=== PATIENT | female | born 1985 | race American Indian/Alaskan Native ===

== ENCOUNTER 2016-07-01 09:20 | Inpatient (IN) | payer MEDICAID ==
--- NOTE | 2016-06-26 12:19 | History and Physical Report ---
History of Present Illness Date of examination: 06/26/16 Date of admission: 07/01/2016 Chief complaint: 31 yo A1 at 39w+4 d admitted for repeat c/s. 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 This infant also has IUGR but has subsequently shown good interval growth. MBT O pos, Rub Imm, GBS positive. Seen and examined and no changes today. History of present illness: Remainder of H&P from [facility] and confirmed today. OB Intake Ethnicity: Mu-Ism: Yazidism Occupation: [employer] Documentation Writer: Dr. Arely Baker Father of baby: Fahad BARNETT contact #: [phone] Vital Signs Height: 68 in. Weight (lb): 264 BMI: 40.2 BP: 130/ 70 mm Hg Ur. Protein: negative Ur. Glucose: negative Chief Complaint/Current Status: c/o missed period, fatigue.....ajackson Menstrual History Regularity: regular LMP: 09/28/2015 LMP reliability: definite LMP character: normal test type: urine test Date: 01/24/2016 BC at conception: none Planned ? yes EDC Calculations LMP: 07/04/2016 EDC Confirmation: 07/04/2016 Gestational Age: 16 6/7 weeks Past History : 3 Term Births: 1 Living Children: 1 Para: 1 Prev : 1 Aborta: 1 Elect. Ab: 1 Spont. 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 Infection History Hx of STD: chlamydia HIV Risk Eval: no Hepatitis B Risk Eval: low risk Personal hx. of genital herpes: no Partner hx. of genital herpes: no Rash, Viral, or Febrile illness since last LMP? no Varicella/Chicken Pox Status: Previous Disease Genetic History Congenital Heart Defect: Mom: no Dad: no Gogo Disease: Mom: no Dad: no Thalassemia Mom: no Dad: no Neural Tube Defect Mom: no Dad: no Down's Syndrome Mom: no Dad: no Dhaval-Sachs Mom: no Dad: no Sickle Cell Disease/Trait Mom: no Dad: no Hemophilia Mom: no Dad: no Muscular Dystrophy Mom: no Dad: no Cystic Fibrosis Mom: no Dad: no [place] Chorea Mom: no Dad: no Mental Retardation Mom: no Dad: no Fragile X Mom: no Dad: no Other Genetic/Chromosomal Disorder Mom: no Dad: no Child w/other defect Mom: yes Dad: no Comments: daughter born with Jones's syndrome Enviromental Exposures Xray Exposure: no Medication, drug, or alcohol use since LMP: no Chemical/Other Exposure: no Exposure to Cat Liter: no Hx of Parvovirus (Fifth Disease): no Occupational Exposure to Children: none Active Medications (reviewed today): None Current Allergies (reviewed today): * ROBITUSSIN (Critical) * ZEST SOAP (Critical) Laboratory Results Routine Urinalysis Leukocytes: negative Nitrite: negative Urobilinogen: negative Protein: negative Blood: trace Ketone: negative Bilirubin: negative Glucose: negative Urine HCG: positive Review of Systems General Denies fever, chills, sweats, anorexia, fatigue, weakness, malaise, weight loss and sleep disorder. Denies nausea, vomiting, headache, swelling of legs, abdominal pain, vaginal discharge, vaginal bleeding and contractions. sore nipples Denies vaginal discharge, incontinence, dysuria, hematuria, urinary frequency, amenorrhea, menorrhagia, abnormal vaginal bleeding, pelvic pain, genital sores, decreased libido, painful periods, painful sex, urinary urgency, hot flashes, vaginal dryness, vaginal itching and vaginal odor. CV Denies chest pains, palpitations, syncope, dyspnea on exertion, orthopnea, PND and peripheral edema. Resp Denies cough, dyspnea at rest, excessive sputum, hemoptysis, wheezing and pleurisy. GI Denies nausea, vomiting, diarrhea, constipation, change in bowel habits, abdominal pain, melena, hematochezia, jaundice, gas/bloating, indigestion/ heartburn, dysphagia and odynophagia. Endo Denies cold intolerance, heat intolerance, polydipsia, polyphagia, polyuria and unusual weight change. Breast Denies left breast lump, right breast lump, nipple discharge, bloody discharge from nipple, breast pain, abnormal mammogram and breast enlargement. MS Denies back pain, joint pain, joint swelling, muscle cramps, muscle weakness, stiffness, arthritis, sciatica, restless legs, leg pain at night and leg pain with exertion. Derm Denies rash, itching, dryness and suspicious lesions. Neuro Denies paralysis, paresthesias, headache, seizures, tremors, vertigo, transient blindness, frequent falls, frequent headaches and difficulty walking. Psych Denies depression, anxiety, irritability and mood swings. Eyes Denies blurring, diplopia, irritation, discharge, vision loss, eye pain and photophobia. ENT Denies earache, ear discharge, tinnitus, decreased hearing, nasal congestion, nosebleeds, sore throat and hoarseness. Allergy Denies urticaria, allergic rash, hay fever and recurrent infections. Heme Denies abnormal bruising, bleeding and enlarged lymph nodes. 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 Arely Baker Medications and Allergies Active Meds: Active Medications Citric Acid/Sodium Citrate (Bicitra) 30 ml PO ONCE ONE Stop: 06/26/16 12:14 Famotidine (Pepcid) 20 mg IV ONCE ONE Stop: 06/26/16 12:14 Cefazolin Sodium (Ancef/Sterile Water 2 Gm/20 Ml) 2 gm in 20 mls @ 80 mls/hr IV PREOP NR PRN Reason: Protocol Lactated Ringer's (Lactated Ringers) 1,000 mls @ 2,250 mls/hr IV PREOP GRICELDA Stop: 06/27/16 13:27 Oxytocin/Sodium Chloride (Pitocin/Ns 20 Unit/1000ml Drip) 20 units in 1,000 mls @ 0 mls/hr IV TITR GRICELDA PRN Reason: As Directed Metoclopramide HCl (Reglan) 10 mg IV ONCE ONE Stop: 06/26/16 12:14 Results All other labs normal. Assessment and Plan - Patient Problems (1) Previous delivery affecting Current Visit: Yes Status: Acute (2) Term Current Visit: Yes Status: Acute
[~2016-07-01 09:20] MED LIST: ANCEF/STERILE WATER 2 GM/20 ML 2 GM/20 ML SYRINGE IV NR; BICITRA PO ONE; LACTATED RINGERS 1,000 ML IV SCH; PEPCID IV ONE; REGLAN IV ONE
--- NOTE | 2016-07-01 10:17 | Anesthesia Consultation ---
Anesthesia Consult and Med Hx Date of service: 07/01/16 - Airway Anesthetic Teeth Evaluation: Good ROM Head & Neck: Adequate Mental/Hyoid Distance: Adequate Mallampati Class: Class II Intubation Access Assessment: Probably Good - Pre-Operative Health Status ASA Pre-Surgery Classification: ASA2 Proposed Anesthetic Plan: Spinal - Additional Comments Anesthesia Medical History Comments: previous
[2016-07-01] MEDS ORDERED: LACTATED RINGERS 2,000 ML ONE (11:02)
[2016-07-01 11:16] LABS: Hemoglobin 10.5 gm/dl (10.1-14.3); Mean Corpuscular HGB Conc 33 % (30-34); Mean Corpuscular Hemoglobin 28 pg (28-32); Mean Corpuscular Volume 87 fl (79-97); Platelet Count 216 K/mm3 (140-440); Red Blood Count 3.69 M/mm3 (3.65-5.03); Red Cell Distribution Width 15.7 % (13.2-15.2); White Blood Count 9.6 K/mm3 (4.5-11.0)
[2016-07-01] MEDS ORDERED: BENADRYL IV PRN (11:24)
[2016-07-01] MEDS ORDERED: DILAUDID IV PRN (11:24)
[2016-07-01] MEDS ORDERED: NARCAN 0.4 MG/1 ML IV PRN ×2 (11:24→13:24)
[2016-07-01] MEDS ORDERED: ZOFRAN IV PRN ×2 (11:24→13:24)
--- NOTE | 2016-07-01 11:24 | Anesthesia Day of Surgery ---
Anesthesia Day of Surgery - Day of Surgery Patient Examined: Yes Patient H&P Reviewed: Yes Patient is NPO: Yes
[2016-07-01] MEDS ORDERED: TORADOL IV PRN ×2 (11:25→13:24)
[2016-07-01] MEDS ORDERED: BICITRA ONE (11:34)
[2016-07-01] MEDS ORDERED: PEPCID IV ONE (11:34)
[2016-07-01] MEDS ORDERED: PITOCin/NS 20 UNIT/1000ML DRIP 20,000 MILLIUNITS/1,000 ML BAG IV ONE (11:34)
[2016-07-01] MEDS ORDERED: REGLAN ONE (11:34)
[2016-07-01] MEDS ORDERED: ANCEF/STERILE WATER 2 GM/20 ML 2 GM/20 ML SYRINGE IV ONE (11:34)
[2016-07-01] MEDS ORDERED: MORPHINE ONE (11:56)
[2016-07-01] MEDS ORDERED: SODIUM CHLORIDE FLUSH SYRINGE 10 ML IV NR ×2 (12:00→14:00)
[2016-07-01] MEDS ORDERED: NACL 0.9% IR ONE (12:20)
[2016-07-01] MEDS ORDERED: WATER FOR IRRIG STERILE IR ONE (12:20)
[2016-07-01] MEDS ORDERED: ANCEF/STERILE WATER 2 GM/20 ML IV ONE (12:36)
[2016-07-01] MEDS: PITOCin/NS 20 UNIT/1000ML DRIP 20 UNITS/1,000 ML BAG IV SCH ×2 (12:42→14:05)
[2016-07-01] MEDS ORDERED: VERSED ONE (12:52)
[2016-07-01] MEDS ORDERED: NEO SYNEPHRINE/NS Syringe(OR USE) IV ONE ×2 (13:05)
--- NOTE | 2016-07-01 13:23 | Operative Report ---
Operative Report Operative Report: Date of Procedure: 07/01/2016 Procedure name(s): Repeat transverse low segment section Pre-operative diagnosis: Previous section, intrauterine at term Post-operative diagnosis: Same Surgeon: Rhonda Rosario M.D. Yard Goods Salesperson: ROLLY Anesthesia: Epidural EBL: 800 : 3551 gm (7 lbs. 13 oz.) male with Apgars of 8 and 9 Time of : 1240 Findings Normal tubes, uterus and ovaries except for small 2-3 cm anterior subserosal fibroid Procedure The patient was taken to the operating room and after adequate anesthesia was obtained she was placed in the supine position in left lateral tilt. Sequential compression devices were in place on both lower extremities and a Rojas catheter was placed in a sterile fashion. The abdomen was then prepped and draped in the usual fashion. Surgical time-out was done with the entire OR team attentive. A Pfannenstiel incision was made with a scalpel through the old incision and sharp dissection was carried down through all layers of the abdomen in the usual fashion. The abdomen was entered bluntly and the lower uterine segment was identified. The presenting part was palpated and the scalpel was used to incise the uterus in a transverse fashion and this incision was extended bluntly with finger traction and the membranes were ruptured. There was some meconium in the fluid. My hand was inserted into the uterus and then the vertex was grasped, rotated to an OA presentation and delivered with a combination of traction and fundal pressure. A nuchal cord was reduced. The remainder of the infant was delivered. The cord was clamped and cut and a viable was suctioned and handed off to the attending NICU staff and was a 8 lbs. 13 oz Male with Apgars of 8 and 9. The placenta was removed manually, the interior of the uterus was cleansed with moist lap packs and the uterus was exteriorized. The uterine incision was closed with a double imbricating layer of 0 Vicryl suture in a running fashion. Hemostasis was adequate and the uterus was returned to the abdomen. Uterus was well contracted. The abdomen was then closed in layers: the rectus muscles were closed with several [id number] sutures of 0 Vicryl, the fascia was closed with running sutures of 0 Vicryl starting at both side corners in turn and tied together in the midline. The subcutaneous tissue was irrigated and then closed with several interrupted sutures of 2-0 plain and the skin was closed with a running subcuticular suture of 4-0 Vicryl. Sponge and Lap count correct X 3, estimated blood loss was 800 mL and the Rojas was draining clear urine. The patient tolerated the procedure well and was discharged to PACU in good condition.
[2016-07-01] MEDS ORDERED: MORPHINE IV PRN ×2 (13:24)
[2016-07-01] MEDS ORDERED: TUCKS PAD TP PRN (13:24)
[2016-07-01] MEDS ORDERED: PHENERGAN PR PRN (13:24)
[2016-07-01] MEDS ORDERED: LANSINOH TP PRN (13:24)
[2016-07-01] MEDS ORDERED: PITOCin/NS 20 UNIT/1000ML DRIP 20 UNITS/1,000 ML BAG IV SCH (14:00)
[2016-07-01] MEDS ORDERED: ANCEF/NS 1 GM/50 ML 1 GM/50 ML BAG IV SCH (14:00)
--- NOTE | 2016-07-01 14:12 | Post Anesthesia Evaluation ---
- Post Anesthesia Evaluation Patient Participated: Yes Airway Patent: Yes Stable Respiratory Function: Yes Temp > 96.8F: Yes Pain Manageable: Yes Adequeate Hydration: Yes Anesthesia Complications: No Block Receding Appropriately: Not Applicable
[2016-07-01] MEDS ORDERED: D5LR 1,000 ML IV SCH (18:45)
[2016-07-01] MEDS: D5LR 1,000 ML IV ONE (19:00)
[2016-07-02 03:57] LABS: Hematocrit 27.9 % (30.3-42.9); Hemoglobin 9.2 gm/dl (10.1-14.3)
[2016-07-02] MEDS ORDERED: ANCEF/NS 1 GM/50 ML 1 GM/50 ML BAG IV SCH (04:00)
[2016-07-02] MEDS ORDERED: BOOSTRIX IM ONE ×2 (06:00→13:25)
--- NOTE | 2016-07-02 07:38 | Progress Note ---
Assessment and Plan Patient doing well, complaints of itching probably from anesthesia. Lochia scant, dressing to be removed by RN during AM care. H&H stable 9.2/29.9, no s/s anemia (anemia from blood loss). VSSAF. Continue postop pathway and anticipate d /c home tomorrow if stable. - Patient Problems (1) delivery delivered Current Visit: Yes Status: Acute (2) Anemia due to blood loss, acute Current Visit: Yes Status: Acute Subjective - Subjective Date of service: 07/02/16 Principal diagnosis: postop day #1 s/p repeat c/s Patient reports: appetite normal, voiding normally, pain well controlled, flatus , ambulating normally, no dizzy ambulation, no nauseated : doing well, nursing well Objective - Vital Signs Latest vital signs: Vital Signs Temp Pulse Pulse Resp BP BP Pulse Ox 07/02/16 04:52 98.7 F 96 H 18 128/56 07/02/16 00:15 98.3 F 86 20 134/65 07/01/16 20:30 98.5 F 91 H 20 109/59 07/01/16 15:55 97.5 F L 92 H 20 121/62 07/01/16 14:35 97.7 F 89 21 116/63 99 07/01/16 14:30 86 27 H 114/70 99 07/01/16 14:25 8 L 127/84 100 07/01/16 14:21 118/62 100 07/01/16 14:15 79 17 105/42 78 L 07/01/16 14:11 84 17 105/42 100 07/01/16 14:05 74 24 112/65 100 07/01/16 14:00 72 29 H 113/53 99 07/01/16 13:55 79 14 118/59 100 07/01/16 13:50 84 14 116/68 100 07/01/16 13:45 88 17 104/61 100 07/01/16 13:40 84 13 104/66 96 07/01/16 13:35 97.6 F 86 16 110/61 99 07/01/16 13:33 98 07/01/16 10:42 72 20 122/71 Intake and Output 07/01/16 07/02/16 07/02/16 22:59 06:59 14:59 Intake Total 615 360 Output Total 200 1650 Balance 415 -1290 Intake: IV 375 PITOCin/NS 20 UNIT/1000ML 375 DRIP 20 units In 1,000 ml @ 250 mls/hr IV TITR GRICELDA Rx#:[id number] Oral 240 Intake, Free Water 360 Output: Urine 200 1650 Indwelling Catheter 200 400 Void 1250 Other: Total, Intake Amount 240 Total, Output Amount 200 750 # Voids Void 1 - Exam Breasts: Present: normal, Cardiovascular: Present: Regular rate Lungs: Present: Clear to auscultation, Normal air movement Abdomen: Present: normal appearance, soft, normal bowel sounds Vulva: both: normal Uterus: Present: normal, firm Extremities: Present: normal Incision: Present: normal, dry, dressed - Labs Labs: Abnormal lab results 07/01/16 07/02/16 Range/Units 10:55 03:24 Hgb 9.2 L (10.1-14.3) gm/dl Hct 27.9 L (30.3-42.9) % RDW 15.7 H (13.2-15.2) %
[2016-07-02] MEDS ORDERED: BENADRYL PO PRN (08:00)
--- NOTE | 2016-07-02 10:25 | Progress Note ---
Subjective Date of service: 07/02/16 Principal diagnosis: postop day #1 s/p repeat c/s Interval history: 1st POD after Patient is in the bed, comfortable. Pain is well controlled with pain meds. Ambulated well. No residual neurological deficit. No anesthesia complications Objective - Constitutional Vitals: Vital Signs - 12hr 07/02/16 07/02/16 07/02/16 00:15 04:52 07:26 Temperature 98.3 F 98.7 F 98.2 F Pulse Rate [ 84 Left Radial] Pulse Rate [ 86 96 H Right From Monitor] Respiratory 20 18 20 Rate Blood Pressure 134/65 128/56 118/74 [Left Arm] - Labs CBC & Chem 7: 07/02/16 03:24 Labs: Abnormal lab results 07/01/16 07/02/16 Range/Units 10:55 03:24 Hgb 9.2 L (10.1-14.3) gm/dl Hct 27.9 L (30.3-42.9) % RDW 15.7 H (13.2-15.2) %
[2016-07-02] MEDS: MOTRIN PO PRN (11:54)
[2016-07-02] MEDS: PERCOCET 5/325 PO PRN ×2 (11:54→20:29)
[2016-07-03] MEDS: MOTRIN PO PRN ×4 (01:16→19:17)
--- NOTE | 2016-07-03 06:30 | Discharge Summary ---
Providers - Providers Date of Admission: 07/01/16 09:20 Date of discharge: 07/03/16 (pt agrees with d/c ) Attending physician: STONE JOSEPH 07/01/16 13:24 Consult to Marriage And Family Counselor [CONS] Routine Reason For Exam: Primary care physician: STONE JOSEPH Hospitalization Reason for admission: section, IUP at term Delivery: Procedure: repeat low transverse Episiotomy: none Laceration: none Incision: normal, dry, intact Other procedures: none complications: none Discharge diagnosis: IUP at term delivered [place] baby: male (decline circumcision) Hospital course: uncomplicated section Pt w/o complaint VSS FF below umb Lochia small Dressing removed Incision D&I H& H 01/01 drop r/t blood loss from surgery. Pt is asymptomatic. Doing well s/p repeat c/s P: d/c today with instructions RTO 1 week postop care Condition at discharge: Good Disposition: DISCHARGED TO HOME OR SELFCARE - Discharge Diagnoses (1) delivery delivered Status: Acute Comment: RTO 1 week postop care Plan - Discharge Medications Prescriptions: Docusate Sodium [Colace] 100 mg PO BID PRN #60 capsule PRN Reason: Constipation Ferrous Sulfate [Feosol 325 MG tab] 325 mg PO BID #60 tablet Ibuprofen [Motrin 800 MG tab] 800 mg PO Q8HR PRN #30 tablet PRN Reason: Pain Lidocain2.5%/Prilocai2.5% [Emla] 5 gm TP 1XW #1 tube oxyCODONE /ACETAMINOPHEN [Percocet 5/325 mg] 1 - 2 tab PO Q4HR PRN #30 tab PRN Reason: Pain - Provider Discharge Summary Activity: routine, no sex for 6 weeks, no heavy lifting 4 weeks, no strenuous exercise Diet: routine Instructions: routine Additional instructions: [] Smoking cessation referral if applicable(refer to patient education folder for contact #) [] Refer to [facility] Booklet Call your doctor immediately for: * Fever > 100.5 * Heavy vaginal bleeding ( >1 pad per hour) * Severe persistent headache * Shortness of breath * Reddened, hot, painful area to leg or breast * Drainage or odor from incision. * Keep incision clean and dry at all times and follow doctor's instructions regarding bathing/showering - Follow up plan Follow up: STONE JOSEPH MD [Primary Care Provider] - 7 Days (Congratulations! Please call [phone] to schedule your postoperative appointment in 1 week. Take medications as prescribed. Call with concerns. )
[2016-07-03 17:07] VITALS: BP 126/72
== END 2016-07-03 20:20 | disposition home or self-care (01) | DRG 765 ==
LOC: APU 09:20 → OB 15:16
PROVIDERS: ADMIT Obstetrics & Gynecology; ATTEND Obstetrics & Gynecology
PROC: 10D00Z1 Extraction of Products of Conception, Low, Open Approach (ICD-10-PCS; principal; 2016-07-01)
DX: O69.81X0 Labor and delivery complicated by cord around neck, without compression, not applicable or unspecified (principal); D62 Acute posthemorrhagic anemia; O34.211 Maternal care for low transverse scar from previous cesarean delivery; O99.02 Anemia complicating childbirth; O99.824 Streptococcus B carrier state complicating childbirth; Z3A.39 39 weeks gestation of pregnancy; Z37.0 Single live birth; Z88.8 Allergy status to other drugs, medicaments and biological substances
CPT/HCPCS: 36415; 85014; 85018; 85027; 86850; 86900; 86901; 88307; 99211; G0463; J0690; J1170; J1885; J2250; J2270; J2370; J2405; J2590; J2765; J7120; J7121

== ENCOUNTER 2017-09-22 07:43 | Emergency (ER) | payer SELFPAY ==
[2017-09-22 07:54] VITALS: BP 116/80
[2017-09-22 08:32] LABS: Basophils % (Auto) 0.1 % (0.0-1.8); Eosinophils # (Auto) 0.1 K/mm3 (0.0-0.4); Eosinophils % (Auto) 0.7 % (0.0-4.3); Hematocrit 32.7 % (30.3-42.9); Lymphocytes # (Auto) 1.3 K/mm3 (1.2-5.4); Mean Corpuscular HGB Conc 34 % (30-34); Mean Corpuscular Hemoglobin 29 pg (28-32); Mean Corpuscular Volume 86 fl (79-97); Monocytes # (Auto) 0.5 K/mm3 (0.0-0.8); Monocytes % (Auto) 5.8 % (0.0-7.3); Platelet Count 222 K/mm3 (140-440); Red Blood Count 3.78 M/mm3 (3.65-5.03); Red Cell Distribution Width 17.9 % (13.2-15.2)
[2017-09-22 08:53] LABS: Bacteria,Urine 2+ /HPF (Negative); Bilirubin,Urine NEG (Negative); Blood,Urine NEG (Negative); Color,Urine Yellow (Yellow); Mucus,Urine 1+ /HPF; Urobilinogen,Urine < 2.0 mg/dL (<2.0)
[2017-09-22 08:54] LABS: WBC,Urine > 182.0 /HPF (0.0-6.0)
[2017-09-22 09:26] LABS: Albumin 3.4 g/dL (3.9-5)
[2017-09-22 09:40] LABS: Alanine Aminotransferase 9 units/L (7-56); BUN/Creatinine Ratio 14; Blood Urea Nitrogen 7 mg/dL (7-17); Calcium 8.8 mg/dL (8.4-10.2); Hemolysis Index 0
--- NOTE | 2017-09-22 11:23 | Ultrasound Report ---
OB ULTRASOUND GREATER THAN 14 WEEKS INDICATION: Abdominal pain. LMP stated at 07/20/2017. COMPARISON: None similar at this institution. TECHNIQUE: Transabdominal grayscale ultrasound with Doppler interrogation performed in this patient with LMP of 07/20/2017. Gestation: Chin Position: Breech Amniotic Fluid: WNL (< 24 weeks, subjective) Placenta: Posterior Placental Grade: Zero Heart Rate: 143 BPM Cervical length: Indeterminate with funneling noted, measuring 4.2 cm at the internal os as on image 3. The legs and cord also noted extending in the cervix. It is too early for a anatomical survey NEUROANATOMY VISUALIZED: Choroid Plexus Lateral Ventricle ANATOMY VISUALIZED: Bladder SPINE VISUALIZED: Limited spine due to position BPD: 4.9 cm = 20 w 6 d HC: 17.7 cm = 20 w 1 d AC: 14.9 cm = 20 w 1 d FL: 3.3 cm = 20 w 2 d HC/AC Ratio: 1.19 Cephalic Index: 85.6 Estimated Weight: 340 grams LMP: 05/30/2017 Clinical age = 16 w 3 d EDC: 03/06/2018 US Gest. Age = 20 w 3 d EDC: 02/06/2018 CONCLUSION: Single, live intrauterine gestation with ultrasound estimated age of 20 weeks and 3 days and EDC of 02/06/2018, noted currently in breech lie with cervical incompetence/funneling and containing legs and cord, as detailed above. Please also correlate clinically and for accuracy of the LMP. Thank you for the opportunity to participate in this patient's care.
[2017-09-22] MEDS ORDERED: ZITHROMAX PO ONE (18:24)
[2017-09-22] MEDS ORDERED: ROCEPHIN IM ONE (18:24)
[2017-09-22] MEDS ORDERED: XYLOCAINE 1% MPF 5 mL INFILTRATI ONE (18:24)
--- NOTE | 2017-09-22 18:28 | Emergency Department Report ---
HPI - General Chief Complaint: Abdominal Pain Time Seen by Provider: 09/22/17 18:13 - HPI HPI: 32-year-old AA female presents to the emergency department with complaint of some intermittent abdominal pain has been going on for the past week. It is a generalized abdominal pain. She denies any vaginal bleeding, vaginal discharge but does have some dysuria. She denies any fever, back pain. The patient is currently and says that her last menstrual cycle was in early July. She has a history of 2 previous pregnancies and 2 previous C-sections. She is not currently taking any vitamins and does not have any established care with any CIGAR HEAD PERFORATOR. She has not taken anything for her symptoms prior to presentation. No recent travel or sick contacts at home. The patient also says that she thinks that she might have been infected with chlamydia. She says that she knows that the person she conceived with had the STD. She says she was supposed to have an appointment on September 09 regarding her Medicaid and getting set up for CIGAR HEAD PERFORATOR care, but she missed that appointment. ED Past Medical Hx - Past Medical History Previous Medical History?: No Hx Hypertension: No Hx Congestive Heart Failure: No Hx Diabetes: No Hx Deep Vein Thrombosis: No Hx Renal Disease: No Hx Sickle Cell Disease: No Hx Seizures: No Hx Asthma: No Hx COPD: No Hx HIV: No - Surgical History Past Surgical History?: Yes Additional Surgical History: x 2 - Social History Smoking Status: Never Smoker Substance Use Type: None - Medications Home Medications: Home Medications Medication Instructions Recorded Confirmed Last Taken Type Ibuprofen [Motrin 800 MG tab] 800 mg PO Q8HR PRN #30 tablet 07/01/16 Unknown Rx Lidocain2.5%/Prilocai2.5% [Emla] 5 gm TP 1XW #1 tube 07/01/16 Unknown Rx oxyCODONE /ACETAMINOPHEN [Percocet 1 - 2 tab PO Q4HR PRN #30 tab 07/01/16 Unknown Rx 5/325 mg] Docusate Sodium [Colace] 100 mg PO BID PRN #60 capsule 07/03/16 Unknown Rx Ferrous Sulfate [Feosol 325 MG tab] 325 mg PO BID #60 tablet 07/03/16 Unknown Rx Pnv Plus Multivit Tab 1 tab PO DAILY 07/03/16 07/03/16 Unknown History Nitrofurantoin Monohyd/M-Cryst 100 mg PO BID #14 capsule 09/22/17 Unknown Rx [Macrobid 100 mg Capsule] Vit-Fe Fumar-FA [ 1 tab PO QDAY #30 tablet 09/22/17 Unknown Rx Vitamin] ED Review of Systems ROS: Stated complaint: 12 WKS PREG./ABD PAIN Other details as noted in HPI Comment: All other systems reviewed and negative Constitutional: denies: chills, fever Eyes: denies: eye pain, eye discharge, vision change ENT: denies: ear pain, throat pain Respiratory: denies: cough, shortness of breath, wheezing Cardiovascular: denies: chest pain, palpitations Gastrointestinal: abdominal pain. denies: diarrhea Genitourinary: dysuria. denies: discharge Musculoskeletal: denies: back pain, joint swelling, arthralgia Skin: denies: rash, lesions Neurological: denies: headache, weakness, paresthesias Physical Exam - Physical Exam Vital Signs: Vital Signs 09/22/17 07:49 Temperature 98.5 F Pulse Rate 104 H Respiratory 18 Rate Blood Pressure 116/80 O2 Sat by Pulse 97 Oximetry Physical Exam: GENERAL: The patient is well-developed well-nourished. HENT: Normocephalic. Atraumatic. Patient has moist mucous membranes. EYES: Extraocular motions are intact. NECK: Supple. Trachea is midline. CHEST/LUNGS: Clear to auscultation. There is no respiratory distress noted. HEART/CARDIOVASCULAR: Regular. There is no tachycardia. There is no murmur. ABDOMEN: Abdomen is soft, nontender. No guarding. Patient has normal bowel sounds. SKIN: Skin is warm and dry. NEURO: The patient is awake, alert, and oriented. The patient is cooperative. The patient has no focal neurologic deficits. The patient has normal speech and gait. MUSCULOSKELETAL: There is no tenderness or deformity. There is no limitation range of motion. There is no evidence of acute injury. ED Course Vital Signs 09/22/17 07:49 Temperature 98.5 F Pulse Rate 104 H Respiratory 18 Rate Blood Pressure 116/80 O2 Sat by Pulse 97 Oximetry ED Medical Decision Making - Lab Data Result diagrams: 09/22/17 08:00 09/22/17 08:00 - Radiology Data Radiology results: report reviewed OB ULTRASOUND GREATER THAN 14 WEEKS INDICATION: Abdominal pain. LMP stated at 07/20/2017. COMPARISON: None similar at this institution. TECHNIQUE: Transabdominal grayscale ultrasound with Doppler interrogation performed in this patient with LMP of 07/20/2017. Gestation: Chin Position: Breech Amniotic Fluid: WNL (< 24 weeks, subjective) Placenta: Posterior Placental Grade: Zero Heart Rate: 143 BPM Cervical length: Indeterminate with funneling noted, measuring 4.2 cm at the internal os as on image 3. The legs and cord also noted extending in the cervix. It is too early for a anatomical survey NEUROANATOMY VISUALIZED: Choroid Plexus Lateral Ventricle ANATOMY VISUALIZED: Bladder SPINE VISUALIZED: Limited spine due to position BPD: 4.9 cm = 20 w 6 d HC: 17.7 cm = 20 w 1 d AC: 14.9 cm = 20 w 1 d FL: 3.3 cm = 20 w 2 d HC/AC Ratio: 1.19 Cephalic Index: 85.6 Estimated Weight: 340 grams LMP: 05/30/2017 Clinical age = 16 w 3 d EDC: 03/06/2018 US Gest. Age = 20 w 3 d EDC: 02/06/2018 CONCLUSION: Single, live intrauterine gestation with ultrasound estimated age of 20 weeks and 3 days and EDC of 02/06/2018, noted currently in breech lie with cervical incompetence/funneling and containing legs and cord, as detailed above. Please also correlate clinically and for accuracy of the LMP. - Medical Decision Making Patient comes in with a complaint of some intermittent abdominal pain over the past 5 or 6 days. Patient's labs confirm that she is . She has an ultrasound done that shows a live intrauterine at about 20 weeks and 3 days. The labs also show a urinary tract infection with greater than 180 white blood cells. Patient has a normal CBC and CMP. The patient also has concern for exposure to chlamydia. Therefore, despite no vaginal discharge, the patient will be treated empirically for gonorrhea and chlamydia with Rocephin and azithromycin. She will be treated for her urinary tract infection with Macrobid and will be started on vitamins. Vital signs stable throughout her ED course. The patient is not currently having any significant abdominal discomfort. However the patient will return to the emergency Department with any worsening of her symptoms or any acute distress. She has been given multiple referrals for CIGAR HEAD PERFORATOR services. - Differential Diagnosis UTI, , fibroids, miscarriage, gastroenteritis Critical Care Time: No Critical care attestation.: If time is entered above; I have spent that time in minutes in the direct care of this critically ill patient, excluding procedure time. ED Disposition Clinical Impression: Exposure to chlamydia Qualifiers: Weeks of gestation: 20 weeks Qualified Code(s): Z3A.20 - 20 weeks gestation of Abdominal pain Qualifiers: Abdominal location: generalized Qualified Code(s): R10.84 - Generalized abdominal pain UTI (urinary tract infection) Qualifiers: Urinary tract infection type: acute cystitis Hematuria presence: with hematuria Qualified Code(s): N30.01 - Acute cystitis with hematuria Disposition: TO HOME OR SELFCARE Is pt being admited?: No Condition: Stable Instructions: (ED), Urinary Tract Infection in Women (ED), Abdominal Pain (ED) Additional Instructions: Please follow up with an CIGAR HEAD PERFORATOR in the next few days. Return to the emergency Department with any worsening of her symptoms, development of any vaginal bleeding, any acute distress. I have started you on vitamins. Take the antibiotics as prescribed. Prescriptions: Nitrofurantoin Monohyd/M-Cryst [Macrobid 100 mg Capsule] 100 mg PO BID #14 capsule Vit-Fe Fumar-FA [ Vitamin] 1 tab PO QDAY #30 tablet Referrals: [facility] [Provider Group] - 3-5 Days [facility] [Provider Group] - 3-5 Days [facility] [Provider Group] - 3-5 Days Time of Disposition: 18:30
== END 2017-09-22 18:48 | disposition home or self-care (01) ==
LOC: ED 07:43
DX: O23.42 Unspecified infection of urinary tract in pregnancy, second trimester (principal); Z3A.20 20 weeks gestation of pregnancy
CPT/HCPCS: 36415; 76805; 80053; 81001; 84703; 85025; 96372; 99284; J0696

== ENCOUNTER 2018-01-01 08:37 | Emergency (ER) | payer MEDICAID ==
[2018-01-01 09:23] LABS: Bacteria,Urine 2+ /HPF (Negative); Bilirubin,Urine NEG (Negative); Blood,Urine SM (Negative); Color,Urine Yellow (Yellow); Mucus,Urine FEW /HPF; Renal Epithelial Cells,Urine <1 /LPF
--- NOTE | 2018-01-01 09:52 | Emergency Department Report ---
ED Female HPI - General Chief complaint: Urogenital-Female Stated complaint: VAGINAL ITCHING AND BURNING Source: patient Mode of arrival: Ambulatory Limitations: No Limitations - History of Present Illness Initial comments: This is an -[place] female who presents with dysuria, itching, and vaginal discharge for 2 weeks. Patient reports she is 34 or 35 weeks gestation. She was exposed to Chlamydia at the beginning of a and treated here in this emergency room with confirmed . She was having issues getting Medicaid approved and have not been able to follow-up with OB/ PROCESS CONTROL OPERATOR. She is currently taking [id number] vitamins. She admits to possible re-exposure to STD. She denies pelvic or low back pain, vaginal bleeding, fever, frequency, or urgency. MD Complaint: vaginal discharge, dysuria Onset/Timin -: week(s) Location: labia Radiation: non-radiating Severity: mild Severity scale (0 -10): 3 Quality: burning Consistency: intermittent Improves with: none Worsens with: urination Are you Now?: Yes Last Menstrual Period: 07/20/17 EDC: 04/26/18 Associated Symptoms: vaginal discharge, dysuria. denies: vaginal bleeding, abdominal pain, nausea/vomiting, fever/chills, headaches, loss of appetite, hematuria, rash, seizure, shortness of breath, syncope, weakness - Related Data Sexually active: Yes Home Medications Medication Instructions Recorded Confirmed Last Taken Pnv Plus Multivit Tab 1 tab PO DAILY 07/03/16 07/03/16 Unknown Previous Rx's Medication Instructions Recorded Last Taken Type Ibuprofen [Motrin 800 MG tab] 800 mg PO Q8HR PRN #30 tablet 07/01/16 Unknown Rx Lidocain2.5%/Prilocai2.5% [Emla] 5 gm TP 1XW #1 tube 07/01/16 Unknown Rx oxyCODONE /ACETAMINOPHEN [Percocet 1 - 2 tab PO Q4HR PRN #30 tab 07/01/16 Unknown Rx 5/325 mg] Docusate Sodium [Colace] 100 mg PO BID PRN #60 capsule 07/03/16 Unknown Rx Ferrous Sulfate [Feosol 325 MG tab] 325 mg PO BID #60 tablet 07/03/16 Unknown Rx Nitrofurantoin Monohyd/M-Cryst 100 mg PO BID #14 capsule 09/22/17 Unknown Rx [Macrobid 100 mg Capsule] Vit-Fe Fumar-FA [ 1 tab PO QDAY #30 tablet 09/22/17 Unknown Rx Vitamin] Miconazole 2% [Monistat 7 Vag 1 applicator VG QHS #7 tube 01/01/18 Unknown Rx Cream] Nitrofurantoin Monohyd/M-Cryst 100 mg PO BID #10 capsule 01/01/18 Unknown Rx [Macrobid 100 mg Capsule] Allergies Allergy/AdvReac Type Severity Reaction Status Date / Time guaifenesin [From Robitussin] Allergy Itching Verified 07/01/16 11:00 ED Review of Systems ROS: Stated complaint: VAGINAL ITCHING AND BURNING Other details as noted in HPI Constitutional: denies: chills, fever Respiratory: denies: cough, shortness of breath, wheezing Cardiovascular: denies: chest pain, palpitations Gastrointestinal: denies: abdominal pain, nausea, diarrhea Genitourinary: dysuria, discharge. denies: urgency, frequency Musculoskeletal: denies: back pain, joint swelling, arthralgia Neurological: denies: headache, weakness, paresthesias Psychiatric: denies: anxiety, depression ED Past Medical Hx - Past Medical History Previous Medical History?: No Hx Hypertension: No Hx Congestive Heart Failure: No Hx Diabetes: No Hx Deep Vein Thrombosis: No Hx Renal Disease: No Hx Sickle Cell Disease: No Hx Seizures: No Hx Asthma: No Hx COPD: No Hx HIV: No - Surgical History Past Surgical History?: Yes Additional Surgical History: x 2 - Social History Smoking Status: Never Smoker Substance Use Type: None - Medications Home Medications: Home Medications Medication Instructions Recorded Confirmed Last Taken Type Ibuprofen [Motrin 800 MG tab] 800 mg PO Q8HR PRN #30 tablet 07/01/16 Unknown Rx Lidocain2.5%/Prilocai2.5% [Emla] 5 gm TP 1XW #1 tube 07/01/16 Unknown Rx oxyCODONE /ACETAMINOPHEN [Percocet 1 - 2 tab PO Q4HR PRN #30 tab 07/01/16 Unknown Rx 5/325 mg] Docusate Sodium [Colace] 100 mg PO BID PRN #60 capsule 07/03/16 Unknown Rx Ferrous Sulfate [Feosol 325 MG tab] 325 mg PO BID #60 tablet 07/03/16 Unknown Rx Pnv Plus Multivit Tab 1 tab PO DAILY 07/03/16 07/03/16 Unknown History Nitrofurantoin Monohyd/M-Cryst 100 mg PO BID #14 capsule 09/22/17 Unknown Rx [Macrobid 100 mg Capsule] Vit-Fe Fumar-FA [ 1 tab PO QDAY #30 tablet 09/22/17 Unknown Rx Vitamin] Miconazole 2% [Monistat 7 Vag 1 applicator VG QHS #7 tube 01/01/18 Unknown Rx Cream] Nitrofurantoin Monohyd/M-Cryst 100 mg PO BID #10 capsule 01/01/18 Unknown Rx [Macrobid 100 mg Capsule] ED Physical Exam - General Limitations: No Limitations General appearance: alert, in no apparent distress, obese - Respiratory Respiratory exam: Present: normal lung sounds bilaterally. Absent: respiratory distress - Cardiovascular Cardiovascular Exam: Present: regular rate, normal rhythm. Absent: systolic murmur, diastolic murmur, rubs, gallop - GI/Abdominal GI/Abdominal exam: Present: soft, normal bowel sounds - External exam: Present: erythema. Absent: swelling, lesions, lacerations, ecchymosis, bleeding Speculum exam: Present: erythema, vaginal discharge (malodorous white curdy discharge). Absent: cervical discharge, vaginal bleeding, foreign body, tissue , laceration - Back Exam Back exam: Present: normal inspection - Neurological Exam Neurological exam: Present: alert, oriented X3 - Psychiatric Psychiatric exam: Present: normal affect, normal mood - Skin Skin exam: Present: warm, dry, intact, normal color. Absent: rash ED Course Vital Signs 01/01/18 08:48 Temperature 98.9 F Pulse Rate 97 H Respiratory 18 Rate Blood Pressure 139/77 O2 Sat by Pulse 98 Oximetry ED Medical Decision Making - Lab Data Lab Results 01/01/18 Range/Units 09:10 Urine Color Yellow (Yellow) Urine Turbidity Cloudy (Clear) Urine pH 7.0 (5.0-7.0) Ur Specific [place] 1.020 (1.003-1.030) Urine Protein 30 mg/dl (Negative) mg/dL Urine Glucose (UA) Neg (Negative) mg/dL Urine Ketones Neg (Negative) mg/dL Urine Blood Sm (Negative) Urine Nitrite Neg (Negative) Urine Bilirubin Neg (Negative) Urine Urobilinogen 2.0 (<2.0) mg/dL Ur Leukocyte Esterase Lg (Negative) Urine WBC (Auto) 113.0 H (0.0-6.0) /HPF Urine RBC (Auto) 39.0 (0.0-6.0) /HPF U Epithel Cells (Auto) 18.0 H (0-13.0) /HPF Urine Bacteria (Auto) 2+ (Negative) /HPF Ur Renal Epithelial Cell <1 /LPF Urine Mucus Few /HPF - Medical Decision Making This is a 32-year-old -[place] female who presents with vaginal discharge and dysuria for 2 weeks. Patient was examined by me. Vitals are stable and in no acute distress. Obtained labs. Urinalysis large amount of blood, leukocyte esterase, and elevated WBCs. Wet prep via pelvic exam positive for rare trichomoniasis and yeast, no clue cells. Given metronidazole 2000 mg by mouth 1 and empirically treated with Rocephin 250 mg IM and azithromycin 1 g by mouth for STD exposure. Start Macrobid for acute cystitis. Discharged home in stable condition. Discussed prevention options. F/U with [facility]SE O[facility] for continued care. Critical care attestation.: If time is entered above; I have spent that time in minutes in the direct care of this critically ill patient, excluding procedure time. ED Disposition Clinical Impression: STD exposure, Trichomonas vaginalis infection, Candidiasis of vagina during Acute cystitis during Qualifiers: Trimester: unspecified trimester Qualified Code(s): O23.10 - Infections of bladder in , unspecified trimester Disposition: DC- TO HOME OR SELFCARE Is pt being admited?: No Does the pt Need Aspirin: No Condition: Stable Instructions: Safe Sex (ED), Sexually Transmitted Diseases (ED), Trichomoniasis (ED) Additional Instructions: Continue safe sexual intercourse. Follow-up with an T[facility] HOUSE OPERATOR for continued care. Follow up with Primary Care Provider or health department. Prescriptions: Miconazole 2% [Monistat 7 Vag Cream] 1 applicator VG QHS #7 tube Nitrofurantoin Monohyd/M-Cryst [Macrobid 100 mg Capsule] 100 mg PO BID #10 capsule Referrals: [facility] [Provider Group] - 3-5 Days [facility] [Provider [facility]] - 3-5 Days Forms: Work/School Release Form(ED) Time of Disposition: 12:37 Print Language: SWAZI
[2018-01-01] MEDS ORDERED: FLAGYL PO ONE (12:32)
[2018-01-01] MEDS ORDERED: XYLOCAINE 1% MPF 5 mL INFILTRATI ONE (12:35)
[2018-01-01] MEDS ORDERED: ROCEPHIN IM ONE (12:35)
[2018-01-01] MEDS ORDERED: ZITHROMAX PO ONE (12:35)
[2018-01-01 12:55] VITALS: BP 136/72
== END 2018-01-01 12:53 | disposition home or self-care (01) ==
LOC: ED 08:37
DX: O23.13 Infections of bladder in pregnancy, third trimester (principal); O98.813 Other maternal infectious and parasitic diseases complicating pregnancy, third trimester; B37.3 Candidiasis of vulva and vagina; A59.01 Trichomonal vulvovaginitis; Z20.2 Contact with and (suspected) exposure to infections with a predominantly sexual mode of transmission; Z3A.35 35 weeks gestation of pregnancy
CPT/HCPCS: 81001; 87210; 87591; 96372; 99284; J0696

== ENCOUNTER 2018-09-03 12:51 | Emergency (ER) | payer MEDICAID, OTHER ==
--- NOTE | 2018-09-03 13:33 | Emergency Department Report ---
Blank Doc - Documentation Documentation: This is a 33-year-old female that presents with LLQ abdominal pain with nausea. Denies any vomiting. Stated is sharp in nature without any radiation. This initial assessment/diagnostic orders/clinical plan/treatment(s) is/are subject to change based on patient's health status, clinical progression and re- assessment by fellow clinical providers in the ED. Further treatment and workup at subsequent clinical providers discretion. Patient/guardians urged not to elope from the ED as their condition may be serious if not clinically assessed and managed. Initial orders include: 1- Patient sent to [facility] for further evaluation and treatment 2- labs 3- UA
[2018-09-03 14:04] LABS: Bilirubin,Urine NEG (Negative); Blood,Urine NEG (Negative); Color,Urine Yellow (Yellow); Urobilinogen,Urine < 2.0 mg/dL (<2.0)
--- NOTE | 2018-09-03 14:07 | Emergency Department Report ---
HPI - General Chief Complaint: Abdominal Pain Time Seen by Provider: 09/03/18 13:32 - HPI HPI: Patient is a 33-year-old female comes to the emergency room today complaining of left lower quadrant and suprapubic pain. She states that she's been battling w ith the UTI and a yeast infection. Patient is not concerned for STD. She has had no nausea vomiting or diarrhea. Her last menstrual cycle was 422. She has been 3 times and has 3 living children. She denies any significant medical history and states that she is currently not on any medications. Patient has an odd affect and is difficult to get detailed information from. She denies mental health history. He has taken nothing at home to make the pain any better today. She cannot identify anything that makes the pain worse. Arrival to the ER she is ambulatory, vital signs are stable she has no fever and she is nontoxic. ED Past Medical Hx - Past Medical History Hx Hypertension: No Hx Congestive Heart Failure: No Hx Diabetes: No Hx Deep Vein Thrombosis: No Hx Renal Disease: No Hx Sickle Cell Disease: No Hx Seizures: No Hx Asthma: No Hx COPD: No Hx HIV: No - Surgical History Past Surgical History?: Yes Additional Surgical History: x 2 - Family History Family history: no significant - Social History Smoking Status: Never Smoker Substance Use Type: Alcohol - Medications Home Medications: Home Medications Medication Instructions Recorded Confirmed Last Taken Type Acetaminophen [Acetaminophen TAB] 500 mg PO Q6HR PRN #20 tablet 09/03/18 Unknown Rx Ondansetron [Zofran Odt] 4 mg PO Q8HR PRN #10 tab.rapdis 09/03/18 Unknown Rx ED Review of Systems ROS: Stated complaint: (L) SIDE ABD PAIN Other details as noted in HPI Comment: All other systems reviewed and negative Physical Exam - Physical Exam Vital Signs: Vital Signs 09/03/18 13:33 Temperature 98.0 F Pulse Rate 75 Respiratory 20 Rate Blood Pressure 128/68 O2 Sat by Pulse 97 Oximetry General: - Head Head exam: Present: atraumatic, normocephalic - Eye Eye exam: Present: normal appearance, EOMI. Absent: nystagmus - ENT ENT exam: Present: normal exam, normal orophraynx, mucous membranes moist, normal external ear exam, no lymphadenopathy - Neck Neck exam: Present: normal inspection, full ROM. Absent: tenderness, m eningismus - Respiratory Respiratory exam: Present: normal lung sounds bilaterally. Absent: respiratory distress, wheezes, rales, rhonchi, stridor, chest wall tenderness, accessory muscle use, decreased breath sounds, prolonged expiratory - Cardiovascular Cardiovascular Exam: Present: regular rate, normal rhythm, normal heart sounds. Absent: bradycardia, tachycardia, irregular rhythm, systolic murmur, diastolic murmur, rubs, gallop, JVD, edema - GI/Abdominal GI/Abdominal exam: Present: soft, non tender on light and deep palpation. Absent: distended, tenderness, guarding, rebound, rigid, pulsatile mass - Rectal Rectal exam: Present: deferred - Extremities Exam Extremities exam: Present: normal inspection, full ROM, other (2+ pulses noted in the bilateral upper extremities. Bilateral lower extremities with 2+ DP bilateral. Full ROM. Absent: calf tenderness - Back Exam Back exam: Present: normal inspection, full ROM. Absent: tenderness, CVA tenderness (R), CVA tenderness (L), paraspinal tenderness, vertebral tenderness - Neurological Exam Neurological exam: Present: alert, oriented X3, normal gait, other (Extraocular movements intact. Tongue midline. No facial droop. Facial sensation intact to light touch in the V1, V2, V3 distribution bilaterally. 5 and 5 strength in 4 extremities.. Sensation is intact to light touch in 4 extremities.). Absent: motor sensory deficit - Psychiatric Psychiatric exam: normal affect and mood - Skin Skin exam: Present: warm, dry, intact, normal color. Absent: rash ED Course Vital Signs 09/03/18 13:33 Temperature 98.0 F Pulse Rate 75 Respiratory 20 Rate Blood Pressure 128/68 O2 Sat by Pulse 97 Oximetry - Reevaluation(s) Reevaluation #1: 09/03/18 18:05 PER JACKET CHANGER THE US IMAGES HAVE NOT BEEN SENT TO [facility] FOR READING STUDY WAS DONE AT 1500 ED Medical Decision Making - Lab Data Result diagrams: 09/03/18 14:08 09/03/18 14:08 - Radiology Data Radiology results: report reviewed, image reviewed - Medical Decision Making Vital Signs 09/03/18 09/03/18 13:33 14:48 Temperature 98.0 F Pulse Rate 75 Respiratory 20 22 Rate Blood Pressure 128/68 O2 Sat by Pulse 97 Oximetry Labs 09/03/18 09/03/18 09/03/18 13:38 14:08 14:08 WBC 7.7 RBC 4.01 Hgb 11.5 Hct 34.4 MCV 86 MCH 29 MCHC 33 RDW 16.9 H Plt Count 244 Lymph % (Auto) 10.5 L [place] % (Auto) 6.3 Eos % (Auto) 0.6 Baso % (Auto) 0.4 Lymph # 0.8 L [place] # 0.5 Eos # 0.0 Baso # 0.0 Seg Neutrophils % 82.2 H Seg Neutrophils # 6.3 Sodium 142 Potassium 3.7 Chloride 104.7 Carbon Dioxide 24 Anion Gap 17 BUN 11 Creatinine 0.7 Estimated GFR > 60 BUN/Creatinine Ratio 16 Glucose 103 H Calcium 9.2 Total Bilirubin 0.30 AST 15 ALT 12 Alkaline Phosphatase 119 Total Protein 8.2 Albumin 4.1 Albumin/Globulin Ratio 1.0 Lipase 10 L HCG, Qual HCG, Quant Urine Color Yellow Urine Turbidity Slightly-cloudy Urine pH 8.0 H Ur Specific [place] 1.019 Urine Protein >500 Urine Glucose (UA) Neg Urine Ketones Neg Urine Blood Neg Urine Nitrite Neg Urine Bilirubin Neg Urine Urobilinogen < 2.0 Ur Leukocyte Esterase Sm Urine WBC (Auto) 126.0 H Urine RBC (Auto) 25.0 U Epithel Cells (Auto) 1.0 09/03/18 09/03/18 14:08 15:20 WBC RBC Hgb Hct MCV MCH MCHC RDW Plt Count Lymph % (Auto) [place] % (Auto) Eos % (Auto) Baso % (Auto) Lymph # [place] # Eos # Baso # Seg Neutrophils % Seg Neutrophils # Sodium Potassium Chloride Carbon Dioxide Anion Gap BUN Creatinine Estimated GFR BUN/Creatinine Ratio Glucose Calcium Total Bilirubin AST ALT Alkaline Phosphatase Total Protein Albumin Albumin/Globulin Ratio Lipase HCG, Qual Positive HCG, Quant 2291 H Urine Color Urine Turbidity Urine pH Ur Specific [place] Urine Protein Urine Glucose (UA) Urine Ketones Urine Blood Urine Nitrite Urine Bilirubin Urine Urobilinogen Ur Leukocyte Esterase Urine WBC (Auto) Urine RBC (Auto) U Epithel Cells (Auto) urine noted given her recent antibiotics and the amount of WBC in her urine- treated empir acally. She does have GC pending. medicated for pain/ NS VSS. no fever. Abd exam is benign. no CVA tenderness preg test positive quant added and noted LMP 4-22- no vaginal bleeding and no vaginal discharge will dc home with dc plan of care and obygn follow up - Differential Diagnosis ro uti/ pylo/ Critical care attestation.: If time is entered above; I have spent that time in minutes in the direct care of this critically ill patient, excluding procedure time. ED Disposition Clinical Impression: , UTI (urinary tract infection) Disposition: DC-01 TO HOME OR SELFCARE Is pt being admited?: No Does the pt Need Aspirin: No Condition: Stable Instructions: (ED), Urinary Tract Infection in Women (ED) Additional Instructions: DIET TOLERATED ACTIVITY TOLERATED PELVIC REST NO SEX TYLENOL FOR PAIN FOLLOW UP WITH OBGYN JAYLAN CALL IN THE AM AND MAKE APPOINTMENT FOR TOMORROW OR FRIDAY FOR FOLLOW UP LABS AND EVALUATION. WHEN YOU GO TAKE THIS PAPERWORK WITH YOU SO THEY HAVE INFORMATION THEY NEED TO TREAT YOU ZOFRAN FOR NAUSEA DO NOT TAKE ANY OTHER MEDS OR ANTIBIOTICS YOU HAVE BEEN TREATED IN RECENT PAST AND HERE TODAY. Prescriptions: Acetaminophen [Acetaminophen TAB] 500 mg PO Q6HR PRN #20 tablet PRN Reason: Pain, Mild (1-3) Ondansetron [Zofran Odt] 4 mg PO Q8HR PRN #10 tab.rapdis PRN Reason: Vomiting Referrals: DELROY ROD MD [Primary Care Provider] - 3-5 Days MARLA CORDOVA MD [Staff Physician] - 3-5 Days Time of Disposition: 17:41
[2018-09-03 14:08] LABS: Protein,Urine >500 mg/dL (Negative)
[2018-09-03] MEDS ORDERED: NACL 0.9% 1000 ML 1,000 ML IV ONE (14:14)
[2018-09-03] MEDS ORDERED: DIFLUCAN PO ONE (14:15)
[2018-09-03] MEDS ORDERED: IBUPROFEN PO ONE (14:15)
[2018-09-03 14:36] LABS: Basophils % (Auto) 0.4 % (0.0-1.8); Eosinophils % (Auto) 0.6 % (0.0-4.3); Hematocrit 34.4 % (30.3-42.9); Hemoglobin 11.5 gm/dl (10.1-14.3); Lymphocytes # (Auto) 0.8 K/mm3 (1.2-5.4); Lymphocytes % (Auto) 10.5 % (13.4-35.0); Mean Corpuscular HGB Conc 33 % (30-34); Mean Corpuscular Volume 86 fl (79-97); Monocytes # (Auto) 0.5 K/mm3 (0.0-0.8); Monocytes % (Auto) 6.3 % (0.0-7.3); Platelet Count 244 K/mm3 (140-440); Red Blood Count 4.01 M/mm3 (3.65-5.03); Red Cell Distribution Width 16.9 % (13.2-15.2)
[2018-09-03] MEDS ORDERED: ZOFRAN IV ONE (14:43)
[2018-09-03] MEDS ORDERED: ZOFRAN ONE (14:46)
[2018-09-03] MEDS ORDERED: ROCEPHIN/NS 1 GM/50 ML 1 GM/50 ML BAG IV SCH (15:00)
[2018-09-03 15:34] LABS: Alanine Aminotransferase 12 units/L (7-56); Albumin 4.1 g/dL (3.9-5); BUN/Creatinine Ratio 16; Blood Urea Nitrogen 11 mg/dL (7-17); Calcium 9.2 mg/dL (8.4-10.2); Hemolysis Index 1
[2018-09-03] MEDS ORDERED: FLAGYL PO ONE (15:51)
[2018-09-03] MEDS ORDERED: ZITHROMAX PO ONE (15:52)
[2018-09-03 18:37] VITALS: BP 124/70
--- NOTE | 2018-09-04 09:01 | Ultrasound Report ---
PROCEDURE: US OB TRANSVAGINAL TECHNIQUE: Ultrasound obstetrical transvaginal HISTORY: llq pain COMPARISONS: FINDINGS: There is gestational sac within the uterus. pole is identified with crown-rump length will 0.27 cm corresponding to estimated gestational age of 5 weeks 6 days with estimated date of delivery Dece er 2019 cardiac activity present and 63 bpm Right ovary is 2.7 x 1.7 x 2.8 cm. There is a 1.8 cm right ovarian cyst Left ovary is 2.5 x 1.1 x 1.7 cm No free fluid identified in the cul-de-sac IMPRESSION: Single live intrauterine gestation estimated at 5 weeks 6 days. This document is electronically signed by Anton Feldman MD., Sep 03 2018 06:09:25 PM ET
--- NOTE | 2018-09-04 09:01 | Ultrasound Report ---
PROCEDURE: US OB <= 14 WEEKS FETUS TECHNIQUE: HISTORY: llq pain COMPARISONS: FINDINGS: There is gestational sac within the uterus. pole is identified with crown-rump length 0.35 cm c orresponding to estimated gestational age of 5 weeks 6 days with estimated date of delivery March 30, 2020 cardiac activity present and 63 bpm Right ovary is 2.7 x 1.7 x 2.8 cm. There is a 1.8 cm right ovarian cyst Left ovary is 2.5 x 1.1 x 1.7 cm No free fluid identified in the cul-de-sac IMPRESSION: Single live intrauterine gestation estimated at 5 weeks 6 days. This document is electronically signed by Anton Feldman MD., Sep 03 2018 06:14:49 PM ET
== END 2018-09-03 18:34 | disposition home or self-care (01) ==
LOC: ED 12:51
DX: O23.41 Unspecified infection of urinary tract in pregnancy, first trimester (principal); Z88.8 Allergy status to other drugs, medicaments and biological substances; Z3A.00 Weeks of gestation of pregnancy not specified
CPT/HCPCS: 36415; 76801; 76817; 80053; 81001; 83690; 84702; 84703; 85025; 96365; 96375; 99284; J0696; J2405; J7030

== ENCOUNTER → 2021-04-17 | Emergency (ER) | payer MEDICAID ==
[2021-04-17 15:30] VITALS: BP 163/87
[2021-04-17 15:30] LABS: Bilirubin,Urine NEG (Negative); Blood,Urine MOD (Negative); Color,Urine Yellow (Yellow); Mucus,Urine FEW /HPF; Urobilinogen,Urine < 2.0 mg/dL (<2.0); WBC,Urine > 182.0 /HPF (0.0-6.0)
[2021-04-17 15:31] LABS: HCG Qualitative,Urine Negative (Negative)
== END | disposition home or self-care (01) ==
LOC: ED 12:00
DX: N39.0 Urinary tract infection, site not specified (principal); Z98.890 Other specified postprocedural states; Z88.8 Allergy status to other drugs, medicaments and biological substances
CPT/HCPCS: 81001; 81025; 99283

== ENCOUNTER 2021-12-06 14:14 | Emergency (ER) | payer MEDICAID ==
[2021-12-06 16:12] VITALS: BP 166/99
[2021-12-06] MEDS ORDERED: BUTALB/ACETAMINOPHEN/CAFFEINE TAB PO ONE (17:03)
[2021-12-06] MEDS ORDERED: ONDANSETRON 4 MG ODT TAB PO ONE (17:03)
[2021-12-06] MEDS ORDERED: IBUPROFEN 600 MG TAB PO ONE (17:03)
[2021-12-06] MEDS ORDERED: amLODIPine 5 MG TAB PO ONE (17:03)
--- NOTE | 2021-12-06 17:59 | Emergency Department Report ---
ED General Adult HPI - General Chief complaint: Headache Stated complaint: HIGH BP/DIZZINESS/HEADACHE Source: patient Mode of arrival: Ambulatory Limitations: No Limitations - History of Present Illness Initial comments: Patient is a 36-year-old female with a history of hypertension and noncompliance with medication who presents to the ED with complaint of persistent frontal si nus pressure and headache, nasal and sinus congestion, elevated blood pressure and generalized fatigue, body aches and pains for the last 1 week. Patient states that she has not taken her blood pressure medication in over 3 months and that she has been concentrating on work almost on a daily basis. Patient denies dizziness, syncope, chest pain, shortness of breath, diaphoresis, nausea and vomiting, sore throat, back pain, neck pain, traumatic injury or fall, fever, chills or dysphagia and dysphonia. MD Complaint: Frontal sinus pressure; frontal headache; elevated blood pressure -: Gradual, week(s) (1) Location: head Radiation: non-radiation Severity scale (0 -10): 7 Quality: aching, sharp Consistency: constant Improves with: none Worsens with: none Associated Symptoms: denies other symptoms, cough, headaches. denies: chest pain, diaphoresis, fever/chills, loss of appetite, malaise, nausea/vomiting, rash, seizure, shortness of breath, syncope, weakness Treatments Prior to Arrival: none - Related Data Previous Rx's Medication Instructions Recorded Last Taken Type Acetaminophen [Acetaminophen TAB] 500 mg PO Q6HR PRN #20 tablet 09/03/18 Unknown Rx Ondansetron [Zofran Odt] 4 mg PO Q8HR PRN #10 tab.rapdis 09/03/18 Unknown Rx Ferrous Sulfate [Feosol 325 MG tab] 325 mg PO BID #60 tablet 05/13/19 Unknown Rx oxyCODONE /ACETAMINOPHEN [Percocet 1 - 2 tab PO Q4H PRN #20 tablet 05/13/19 Unknown Rx 5/325 mg] cephALEXin [Keflex] 500 mg PO Q6HR #28 capsule 04/17/21 Unknown Rx Amoxicillin/K Clav Tab [Augmentin 1 tab PO Q12HR #20 tab 12/06/21 Unknown Rx 875 mg] Butalb/Acetamin/Caff 50-325-40 1 - 2 tab PO Q6HR PRN #15 tab 12/06/21 Unknown Rx [Fioricet 50-325-40] Ibuprofen [Motrin 800 MG tab] 800 mg PO Q6H PRN #30 tablet 12/06/21 Unknown Rx Ondansetron [Zofran Odt] 4 mg PO Q8HR PRN #15 tab.rapdis 12/06/21 Unknown Rx amLODIPine 10 mg PO DAILY #30 tab 12/06/21 Unknown Rx Allergies Allergy/AdvReac Type Severity Reaction Status Date / Time guaifenesin [From Robitussin] Allergy Itching Verified 12/06/21 16:13 ED Review of Systems ROS: Stated complaint: HIGH BP/DIZZINESS/HEADACHE Other details as noted in HPI Constitutional: malaise, other (Elevated blood pressure). denies: chills, fever Eyes: denies: eye pain, eye discharge, vision change ENT: congestion, other (Palpable frontal sinus tenderness). denies: ear pain, throat pain Respiratory: cough. denies: shortness of breath, wheezing Cardiovascular: denies: chest pain, palpitations Endocrine: no symptoms reported Gastrointestinal: denies: abdominal pain, nausea, vomiting, diarrhea Genitourinary: denies: urgency, dysuria, discharge Musculoskeletal: denies: back pain, joint swelling, arthralgia Skin: denies: rash, lesions Neurological: headache (Frontal headache). denies: weakness, paresthesias Psychiatric: denies: anxiety, depression Hematological/Lymphatic: denies: easy bleeding, easy bruising ED Past Medical Hx - Past Medical History Previous Medical History?: Yes Hx Hypertension: Yes Hx Congestive Heart Failure: No Hx Diabetes: No Hx Deep Vein Thrombosis: No Hx Renal Disease: No Hx Sickle Cell Disease: No Hx Seizures: No Hx Asthma: No Hx COPD: No Hx HIV: No - Surgical History Additional Surgical History: x 2 - Social History Smoking Status: Never Smoker - Medications Home Medications: Home Medications Medication Instructions Recorded Confirmed Last Taken Type Acetaminophen [Acetaminophen TAB] 500 mg PO Q6HR PRN #20 tablet 09/03/18 05/14/19 Unknown Rx Ondansetron [Zofran Odt] 4 mg PO Q8HR PRN #10 tab.rapdis 09/03/18 05/14/19 Unknown Rx Ferrous Sulfate [Feosol 325 MG tab] 325 mg PO BID #60 tablet 05/13/19 Unknown Rx oxyCODONE /ACETAMINOPHEN [Percocet 1 - 2 tab PO Q4H PRN #20 tablet 05/13/19 Unknown Rx 5/325 mg] cephALEXin [Keflex] 500 mg PO Q6HR #28 capsule 04/17/21 Unknown Rx Amoxicillin/K Clav Tab [Augmentin 1 tab PO Q12HR #20 tab 12/06/21 Unknown Rx 875 mg] Butalb/Acetamin/Caff 50-325-40 1 - 2 tab PO Q6HR PRN #15 tab 12/06/21 Unknown Rx [Fioricet 50-325-40] Ibuprofen [Motrin 800 MG tab] 800 mg PO Q6H PRN #30 tablet 12/06/21 Unknown Rx Ondansetron [Zofran Odt] 4 mg PO Q8HR PRN #15 tab.rapdis 12/06/21 Unknown Rx amLODIPine 10 mg PO DAILY #30 tab 12/06/21 Unknown Rx ED Physical Exam - General Limitations: No Limitations General appearance: alert, in no apparent distress - Head Head exam: Present: atraumatic, normocephalic, normal inspection - Eye Eye exam: Present: normal appearance, PERRL, EOMI Pupils: Present: normal accommodation - ENT ENT exam: Present: normal orophraynx, mucous membranes moist, TM's normal bilaterally, normal external ear exam ( congested nasal passages; palpable frontal and maxillary sinus tenderness), other (Grossly) - Neck Neck exam: Present: normal inspection, full ROM. Absent: tenderness - Respiratory Respiratory exam: Present: normal lung sounds bilaterally. Absent: respiratory distress, wheezes, rhonchi, stridor, chest wall tenderness, accessory muscle use, decreased breath sounds, other - Cardiovascular Cardiovascular Exam: Present: regular rate, normal rhythm, normal heart sounds. Absent: systolic murmur, diastolic murmur, rubs, gallop - GI/Abdominal GI/Abdominal exam: Present: soft, normal bowel sounds. Absent: tenderness, guarding, rebound, hyperactive bowel sounds, hypoactive bowel sounds, mass, bruit - Extremities Exam Extremities exam: Present: normal inspection, full ROM, normal capillary refill. Absent: tenderness - Back Exam Back exam: Present: normal inspection, full ROM. Absent: tenderness, CVA tenderness (R), CVA tenderness (L), muscle spasm, paraspinal tenderness, vertebral tenderness - Neurological Exam Neurological exam: Present: alert, oriented X3, CN II-XII intact, normal gait, reflexes normal - Psychiatric Psychiatric exam: Present: normal affect, normal mood - Skin Skin exam: Present: warm, dry, intact, normal color. Absent: rash ED Course Vital Signs 12/06/21 16:11 Temperature 98.2 F Pulse Rate 72 Respiratory 16 Rate Blood Pressure 166/99 [Right] O2 Sat by Pulse 98 Oximetry ED Medical Decision Making - Medical Decision Making This is a 36-year-old female with a history of hypertension and noncompliance with medication who presents to the ED with complaint of persistent frontal sinus pressure and headache, nasal and sinus congestion, elevated blood pressure and generalized fatigue, body aches and pains for the last 1 week. Patient states that she has not taken her blood pressure medication in over 3 months and that she has been concentrating on work almost on a daily basis. In the ED, patient is alert and oriented x3 and is not in any distress. Patient was treated in the ED for pain and discharged home on pain medications and antibiotics for sinusitis. Patient was also given a prescription for blood pressure medication. Patient was advised return to the ED immediately if symptoms get worse, otherwise follow-up with her primary care physician in 7 to 10 days for reevaluation. - Differential Diagnosis sinusitis, URI; sinus headache; hypertension; anxiety Critical care attestation.: If time is entered above; I have spent that time in minutes in the direct care of this critically ill patient, excluding procedure time. ED Disposition Clinical Impression: Acute upper respiratory infection, Uncontrolled stage 2 hypertension Acute frontal sinusitis, unspecified Qualifiers: Recurrence: non-recurrent Qualified Code(s): J01.10 - Acute frontal sinusitis, unspecified Disposition: HOME / SELF CARE / HOMELESS Is pt being admited?: No Does the pt Need Aspirin: No Condition: Stable Instructions: Hypertension (ED), Sinusitis, Adult, [id number], Hypertension, Adult, [id number], Upper Respiratory Infection, Adult, [id number] Additional Instructions: Your symptoms are likely due to frontal sinusitis. Therefore take medication with food, drink plenty of fluids and follow-up with your primary care physician in 7 to 10 days for reevaluation. Return to the ED immediately if symptoms get worse Prescriptions: amLODIPine 10 mg PO DAILY #30 tab Amoxicillin/K Clav Tab [Augmentin 875 mg] 1 tab PO Q12HR #20 tab Butalb/Acetamin/Caff 50-325-40 [Fioricet 50-325-40] 1 - 2 tab PO Q6HR PRN #15 tab PRN Reason: Headache Ibuprofen [Motrin 800 MG tab] 800 mg PO Q6H PRN #30 tablet PRN Reason: Pain Ondansetron [Zofran Odt] 4 mg PO Q8HR PRN #15 tab.rapdis PRN Reason: Nausea Referrals: [facility] [Provider Group] - 7-10 days Time of Disposition: 18:01 Print Language: SYRI[place]
== END 2021-12-06 18:20 | disposition home or self-care (01) ==
LOC: ED 14:14
DX: J06.9 Acute upper respiratory infection, unspecified (principal); J01.10 Acute frontal sinusitis, unspecified; I10 Essential (primary) hypertension; Z91.09 Other allergy status, other than to drugs and biological substances; Z79.899 Other long term (current) drug therapy
CPT/HCPCS: 99282; J3490; Q0162